=== PATIENT | male | born 1965 | race Hispanic/Latino ===

== ENCOUNTER 2017-11-18 11:24 | Inpatient (IN) | payer OTHER ==
[~2017-11-18] VITALS: Ht 177.8 cm; Wt 112.0 kg
[2017-11-18 12:00] LABS: BASOPHILS % (AUTO) 0.5 % (0.0-5.0); EOSINOPHILS % (AUTO) 0.4 % (0.0-8.0); HEMATOCRIT 43.8 % (42-54); LYMPHOCYTES % (AUTO) 13.7 % (21.0-51.0); MEAN CORPUSCULAR HEMOGLOBIN 31.4 pg (27.0-33.0); MEAN CORPUSCULAR HGB CONC 35.3 g/dL (32.0-36.0); MONOCYTES % (AUTO) 16.6 % (3.0-13.0); NEUTROPHILS % (AUTO) 68.8 % (40.0-77.0); NUCLEATED RED BLOOD CELLS 0.1 % (0.0-0.19); PLATELET COUNT (AUTO) 145 K/uL (130-400); RED BLOOD CELL COUNT(AUTO) 4.92 MIL/uL (4.50-6.20); RED CELL DISTRIBUTION WIDTH 12.6 % (11.0-15.5); WHITE BLOOD COUNT (AUTO) 2.8 K/uL (4.8-10.8)
[2017-11-18 12:04] LABS: POTASSIUM 3.2 mmol/L (3.5-5.1)
[2017-11-18 12:09] LABS: BILIRUBIN,TOTAL 0.6 mg/dL (0.2-1.0); TOTAL PROTEIN, SERUM 6.8 g/dL (6.0-8.3)
[2017-11-18] MEDS ORDERED: IPRATROPIUM/ALBUTEROL SULFATE 3 ML SOLUTION IH ONE (12:57)
[2017-11-18] MEDS ORDERED: CEFTRIAXONE SODIUM 1 GM ONE (13:06)
[2017-11-18] MEDS ORDERED: AZITHROMYCIN 250 MG TABLET PO ONE (13:07)
[2017-11-18] MEDS ORDERED: SODIUM CHLORIDE 0.9% 100 ML IV ONE (13:07)
[2017-11-18 13:09] LABS: BAND NEUTROPHILS % (MANUAL) 10 % (0-2); BASOPHILS % (MANUAL) 1 % (0-2); LYMPHOCYTES % (MANUAL) 7 % (22-44); MAN.DIFF COMMENT-IMPRESSION MANUAL DIFFERENTIAL; MONOCYTES % (MANUAL) 11 % (2-9); PLATELET MORPHOLOGY COMMENT ADEQUATE; REACTIVE LYMPHOCYTES 2 % (0-0); SEGMENTED NEUTROPHILS % 69 % (40-70)
[2017-11-18] MEDS ORDERED: SODIUM CHLORIDE 0.9% 1000ML 1,000 ML IV ONE (15:46)
[2017-11-18] MEDS ORDERED: IBUPROFEN 200 MG TAB ONE (15:47)
[2017-11-18] MEDS ORDERED: IBUPROFEN 400 MG TABLET ONE (15:47)
[2017-11-18] MEDS: SODIUM CHLORIDE 0.9% 1000ML 1,000 ML IV SCH (16:20)
[2017-11-18] MEDS ORDERED: ONDANSETRON HCL 4 MG/2 ML VIAL IV PRN (16:30)
[2017-11-18] MEDS ORDERED: LIDOCAINE HCL-MPF 1% 2ML VIAL IVP PRN (16:30)
[2017-11-18] MEDS ORDERED: POTASSIUM CHLORIDE 20MEQ/100ML 100 ML IV PRN (16:30)
[2017-11-18] MEDS ORDERED: POTASSIUM CHLORIDE 20 MEQ ERTAB PO PRN (16:30)
[2017-11-18] MEDS ORDERED: HYDRALAZINE HCL 20 MG/ML VIAL IV PRN ×2 (16:30→18:45)
[2017-11-18] MEDS ORDERED: POTASSIUM CHLORIDE 10% ELIXIR 20 MEQ/15 ML UDCUP PO PRN (16:30)
[2017-11-18] MEDS ORDERED: SODIUM CHLORIDE 0.9% 1000ML 1,000 ML IV SCH (16:35)
[2017-11-18 18:03] VITALS: BP 107/53
[2017-11-18] MEDS ORDERED: LIDOCAINE HCL MPF 1% 5ML VIAL IVP PRN (18:45)
[2017-11-18] MEDS: METHYLPREDNISOLONE SOD SUCC 125MG/2ML VIAL IV SCH (18:48)
[2017-11-18] MEDS: IPRATROPIUM/ALBUTEROL SULFATE 3 ML SOLUTION IH SCH ×2 (18:52→23:06)
[2017-11-18 20:33] VITALS: BP 119/74
[2017-11-18 20:45] LABS: CREATINE KINASE MB 1.7 ng/mL (0.5-3.6); MYOGLOBIN 284 ng/mL (10-92); TROPONIN I < 0.04 ng/mL (0.00-0.06)
[2017-11-18 20:55] LABS: CREATINE KINASE, TOTAL 2228 U/L (21-232)
[2017-11-18] MEDS: FAMOTIDINE/PF 20 MG/2 ML VIAL IV SCH (21:51)
[2017-11-18] MEDS: BENZONATATE 100 MG CAPSULE PO SCH (21:51)
[2017-11-18] MEDS: ZOSYN 3.375GM+NS 50ML 50 ML IV SCH (21:51)
[2017-11-19 00:20] VITALS: BP 117/75
[2017-11-19] MEDS: METHYLPREDNISOLONE SOD SUCC 125MG/2ML VIAL IV SCH ×3 (01:28→16:36)
[2017-11-19 04:40] VITALS: BP 116/78
[2017-11-19] MEDS: ZOSYN 3.375GM+NS 50ML 50 ML IV SCH ×3 (05:51→21:06)
[2017-11-19] MEDS: IPRATROPIUM/ALBUTEROL SULFATE 3 ML SOLUTION IH SCH ×3 (06:54→18:36)
[2017-11-19 07:30] VITALS: BP 120/76
[2017-11-19] MEDS: BENZONATATE 100 MG CAPSULE PO SCH ×3 (09:00→21:06)
[2017-11-19] MEDS ORDERED: SODIUM CHLORIDE 0.9% 1000ML 1,000 ML IV SCH (09:08)
[2017-11-19] MEDS: ENOXAPARIN SODIUM 40 MG/0.4 ML SYRINGE SQ SCH (09:17)
[2017-11-19] MEDS: FAMOTIDINE/PF 20 MG/2 ML VIAL IV SCH ×2 (09:17→21:06)
[2017-11-19] MEDS: SODIUM CHLORIDE 0.9% 1000ML 1,000 ML IV SCH ×2 (09:18→18:15)
[2017-11-19 09:25] LABS: BASOPHILS % (AUTO) 0.3 % (0.0-5.0); EOSINOPHILS % (AUTO) 0.2 % (0.0-8.0); HEMATOCRIT 43.9 % (42-54); LYMPHOCYTES % (AUTO) 6.2 % (21.0-51.0); MEAN CORPUSCULAR HEMOGLOBIN 30.4 pg (27.0-33.0); MEAN CORPUSCULAR HGB CONC 33.9 g/dL (32.0-36.0); MEAN CORPUSCULAR VOLUME 89.8 fL (79-99); MONOCYTES % (AUTO) 17.9 % (3.0-13.0); NEUTROPHILS % (AUTO) 75.4 % (40.0-77.0); NUCLEATED RED BLOOD CELLS 0.1 % (0.0-0.19); PLATELET COUNT (AUTO) 147 K/uL (130-400); RED BLOOD CELL COUNT(AUTO) 4.89 MIL/uL (4.50-6.20); RED CELL DISTRIBUTION WIDTH 12.8 % (11.0-15.5); WHITE BLOOD COUNT (AUTO) 2.8 K/uL (4.8-10.8)
[2017-11-19 09:58] LABS: CREATININE 1.1 mg/dL (0.5-1.5); POTASSIUM 3.9 mmol/L (3.5-5.1)
[2017-11-19 10:32] LABS: APPEARANCE,URINE Clear (CLEAR); BILIRUBIN,URINE Negative (NEGATIVE); COLOR,URINE Yellow (YELLOW); GLUCOSE, URINE (UA) >=1000 mg/dL (NEGATIVE); KETONES,URINE Negative (NEGATIVE); LEUKOCYTE ESTERASE ,URINE Negative (NEGATIVE); NITRATE,URINE Negative (NEGATIVE); OCCULT BLOOD,URINE Negative (NEGATIVE); PROTEIN,URINE Negative (NEGATIVE)
[2017-11-19 11:00] VITALS: BP 118/81
[2017-11-19 11:12] LABS: BACTERIA,URINE None Seen /HPF (None Seen); RBC,URINE None Seen /HPF (0-1); SQUAMOUS EPITHELIAL CELL,UR Rare /HPF (0-2); WBC,URINE None Seen /HPF (0-1)
[2017-11-19] MEDS ORDERED: IOHEXOL 350 MG/ML 100ML INFUS..BTL IV ONE (12:56)
[2017-11-19 16:00] VITALS: BP 125/89
[2017-11-19 20:24] VITALS: BP 124/77
[2017-11-19] MEDS: ACETAMINOPHEN 325 MG TAB PO PRN (21:12)
[2017-11-19] MEDS: MORPHINE SULFATE 2 MG/ML 1ML SYG IV PRN (23:14)
[2017-11-20] MEDS: IPRATROPIUM/ALBUTEROL SULFATE 3 ML SOLUTION IH SCH ×4 (00:24→18:13)
[2017-11-20 00:28] VITALS: BP 100/52
[2017-11-20] MEDS: METHYLPREDNISOLONE SOD SUCC 125MG/2ML VIAL IV SCH ×3 (00:32→16:30)
[2017-11-20] MEDS: SODIUM CHLORIDE 0.9% 1000ML 1,000 ML IV SCH ×4 (01:35→20:55)
[2017-11-20] MEDS: ACETAMINOPHEN 325 MG TAB PO PRN ×2 (01:36→11:42)
[2017-11-20 04:32] VITALS: BP 129/72
[2017-11-20 04:46] LABS: HEMATOCRIT 40.7 % (42-54); MEAN CORPUSCULAR HEMOGLOBIN 31.2 pg (27.0-33.0); MEAN CORPUSCULAR HGB CONC 34.2 g/dL (32.0-36.0); MEAN CORPUSCULAR VOLUME 91.2 fL (79-99); PLATELET COUNT (AUTO) 169 K/uL (130-400); RED BLOOD CELL COUNT(AUTO) 4.46 MIL/uL (4.50-6.20); RED CELL DISTRIBUTION WIDTH 12.9 % (11.0-15.5); WHITE BLOOD COUNT (AUTO) 11.1 K/uL (4.8-10.8)
[2017-11-20] MEDS: ZOSYN 3.375GM+NS 50ML 50 ML IV SCH ×3 (05:08→20:55)
[2017-11-20 07:50] VITALS: BP 114/68
[2017-11-20] MEDS: ENOXAPARIN SODIUM 40 MG/0.4 ML SYRINGE SQ SCH (09:34)
[2017-11-20] MEDS: BENZONATATE 100 MG CAPSULE PO SCH ×3 (09:34→20:55)
[2017-11-20] MEDS: FAMOTIDINE/PF 20 MG/2 ML VIAL IV SCH ×2 (09:38→20:55)
[2017-11-20 11:16] VITALS: BP 111/57
[2017-11-20] MEDS: LEVOFLOXACIN 750 MG/D5W 150 ML 150 ML IV SCH (11:27)
[2017-11-20] MEDS: LACTATED RINGERS 1000ML IV SCH (11:43)
[2017-11-20] MEDS: MORPHINE SULFATE 2 MG/ML 1ML SYG IV PRN (14:20)
[2017-11-20 16:33] VITALS: BP 130/68
[2017-11-20] MEDS ORDERED: SODIUM CHLORIDE 0.9% 500 ML IV ONE (19:30)
[2017-11-20] MEDS ORDERED: LORAZEPAM 2 MG/ML 1 ML VIAL ONE (19:42)
[2017-11-20 21:23] LABS: AMPHET/METH SCREEN,URINE NEGATIVE (NEGATIVE); BARBITURATE SCREEN, URINE NEGATIVE (NEGATIVE); BENZODIAZEPINES SCREEN,URINE NEGATIVE (NEGATIVE); CANNABINOID SCREEN,URINE NEGATIVE (NEGATIVE); COCAINE SCREEN,URINE NEGATIVE (NEGATIVE); OPIATE SCREEN,URINE POSITIVE (NEGATIVE); PHENCYCLIDINE SCREEN,URINE NEGATIVE (NEGATIVE)
[2017-11-20] MEDS ORDERED: LORAZEPAM 2 MG/ML 1 ML VIAL IVP STA (21:53)
[2017-11-20 23:00] VITALS: BP 143/87
[2017-11-21] MEDS: METHYLPREDNISOLONE SOD SUCC 125MG/2ML VIAL IV SCH ×3 (00:25→17:26)
[2017-11-21] MEDS: IPRATROPIUM/ALBUTEROL SULFATE 3 ML SOLUTION IH SCH ×4 (00:35→18:00)
[2017-11-21] MEDS: LORAZEPAM 2 MG/ML 1 ML VIAL IVP PRN ×3 (01:31→15:07)
[2017-11-21 03:00] VITALS: BP 141/73
[2017-11-21] MEDS: SODIUM CHLORIDE 0.9% 1000ML 1,000 ML IV SCH ×2 (04:07→17:27)
[2017-11-21] MEDS: ZOSYN 3.375GM+NS 50ML 50 ML IV SCH ×3 (04:58→20:29)
[2017-11-21] MEDS: MORPHINE SULFATE 2 MG/ML 1ML SYG IV PRN (05:48)
[2017-11-21 07:49] VITALS: BP 118/74
[2017-11-21] MEDS: M.V.I. IV [ADULT] 10 ML, FOLIC ACID 1 MG, THIAMINE HCL 100 MG in SODIUM CHLORIDE 0.9% 1... IV SCH (08:31)
[2017-11-21] MEDS: BENZONATATE 100 MG CAPSULE PO SCH ×3 (08:31→20:30)
[2017-11-21] MEDS: FAMOTIDINE/PF 20 MG/2 ML VIAL IV SCH ×2 (08:31→20:29)
[2017-11-21] MEDS: LEVOFLOXACIN 750 MG/D5W 150 ML 150 ML IV SCH (08:31)
[2017-11-21] MEDS: ENOXAPARIN SODIUM 40 MG/0.4 ML SYRINGE SQ SCH (08:32)
[2017-11-21] MEDS ORDERED: CHLORDIAZEPOXIDE HCL 25 MG CAP PO PRN (10:15)
[2017-11-21 12:00] VITALS: BP 129/86
[2017-11-21 15:55] VITALS: BP 130/87
[2017-11-21 20:00] VITALS: BP 147/88
[2017-11-21 23:48] VITALS: BP 162/91
[2017-11-22] MEDS: SODIUM CHLORIDE 0.9% 1000ML 1,000 ML IV SCH ×2 (00:07→07:22)
[2017-11-22] MEDS: IPRATROPIUM/ALBUTEROL SULFATE 3 ML SOLUTION IH SCH ×5 (00:49→23:30)
[2017-11-22] MEDS: METHYLPREDNISOLONE SOD SUCC 125MG/2ML VIAL IV SCH ×3 (01:13→16:21)
[2017-11-22] MEDS: LORAZEPAM 2 MG/ML 1 ML VIAL IVP PRN (01:48)
[2017-11-22 03:51] VITALS: BP 155/80
[2017-11-22] MEDS: ZOSYN 3.375GM+NS 50ML 50 ML IV SCH ×2 (04:51→12:55)
[2017-11-22 07:00] VITALS: BP 126/73
[2017-11-22] MEDS: LACTATED RINGERS 1000ML IV SCH (07:21)
[2017-11-22] MEDS: BENZONATATE 100 MG CAPSULE PO SCH ×3 (09:00→20:42)
[2017-11-22] MEDS: LEVOFLOXACIN 750 MG/D5W 150 ML 150 ML IV SCH (10:08)
[2017-11-22] MEDS: ENOXAPARIN SODIUM 40 MG/0.4 ML SYRINGE SQ SCH (10:09)
[2017-11-22] MEDS: FAMOTIDINE/PF 20 MG/2 ML VIAL IV SCH ×2 (10:09→20:42)
[2017-11-22] MEDS: M.V.I. IV [ADULT] 10 ML, FOLIC ACID 1 MG, THIAMINE HCL 100 MG in SODIUM CHLORIDE 0.9% 1... IV SCH (10:46)
[2017-11-22 11:00] VITALS: BP 124/89
[2017-11-22 14:08] LABS: INR 1.05 (0.85-1.15)
[2017-11-22] MEDS ORDERED: PHARMACY COMMUNICATION MISC SCH (14:15)
[2017-11-22 16:00] VITALS: BP 132/49
[2017-11-22] MEDS: DOXYCYCLINE 100MG+NS 250ML 250 ML IV SCH (16:21)
[2017-11-22] MEDS ORDERED: COMPOUND IV MISC 1 EACH IVSOLN MISC PRN (17:00)
[2017-11-22] MEDS: MORPHINE SULFATE 2 MG/ML 1ML SYG IV PRN (18:45)
[2017-11-22 20:00] VITALS: BP 118/84
[2017-11-22] MEDS: ACYCLOVIR SODIUM IV SCH (20:42)
[2017-11-22] MEDS: SODIUM CHLORIDE 0.9% IV SCH (20:42)
[2017-11-23] VITALS (12 sets, daily range): BP systolic 113–138; BP diastolic 65–94
[2017-11-23] MEDS: METHYLPREDNISOLONE SOD SUCC 125MG/2ML VIAL IV SCH ×3 (00:49→17:15)
[2017-11-23] MEDS: SODIUM CHLORIDE 0.9% IV SCH ×3 (01:07→17:16)
[2017-11-23] MEDS: ACYCLOVIR SODIUM IV SCH ×3 (01:07→17:16)
[2017-11-23] MEDS: DOXYCYCLINE 100MG+NS 250ML 250 ML IV SCH ×2 (03:00→14:37)
[2017-11-23] MEDS: MORPHINE SULFATE 2 MG/ML 1ML SYG IV PRN ×3 (03:18→22:10)
[2017-11-23] MEDS: SODIUM CHLORIDE 0.9% 1000ML 1,000 ML IV SCH (05:23)
[2017-11-23] MEDS: IPRATROPIUM/ALBUTEROL SULFATE 3 ML SOLUTION IH SCH ×4 (06:30→23:26)
[2017-11-23] MEDS: ENOXAPARIN SODIUM 40 MG/0.4 ML SYRINGE SQ SCH (09:00)
[2017-11-23] MEDS: BENZONATATE 100 MG CAPSULE PO SCH ×3 (09:55→22:08)
[2017-11-23] MEDS: M.V.I. IV [ADULT] 10 ML, FOLIC ACID 1 MG, THIAMINE HCL 100 MG in SODIUM CHLORIDE 0.9% 1... IV SCH (09:56)
[2017-11-23] MEDS: FAMOTIDINE/PF 20 MG/2 ML VIAL IV SCH ×2 (10:08→20:07)
[2017-11-23 10:30] LABS: INR 0.99 (0.85-1.15); PROTHROMBIN TIME 10.4 SEC (9.6-11.6)
[2017-11-23 15:02] LABS: GLUCOSE, CSF 126 mg/dL (40-70); TOTAL PROTEIN, CSF 89 mg/dL (15-45)
[2017-11-23 15:33] LABS: APPEARANCE,CSF CLEAR (CLEAR); CSF TOTAL VOLUME 12.5 mL; CSF TUBE NUMBER TUBE NO.3
[2017-11-23 15:34] LABS: COLOR,CSF COLORLESS (COLORLESS)
[2017-11-23 15:35] LABS: RED BLOOD CELL1,CSF 4 CMM (0-0); WHITE BLOOD CELL1,CSF 13 CMM (0-5)
[2017-11-24] VITALS (7 sets, daily range): BP systolic 117–152; BP diastolic 65–92
[2017-11-24] MEDS: ACYCLOVIR SODIUM IV SCH ×2 (00:30→09:47)
[2017-11-24] MEDS: SODIUM CHLORIDE 0.9% IV SCH ×2 (00:30→09:47)
[2017-11-24] MEDS: METHYLPREDNISOLONE SOD SUCC 125MG/2ML VIAL IV SCH ×3 (00:30→17:35)
[2017-11-24] MEDS: DOXYCYCLINE 100MG+NS 250ML 250 ML IV SCH ×2 (02:50→14:49)
[2017-11-24] MEDS: SODIUM CHLORIDE 0.9% 1000ML 1,000 ML IV SCH ×4 (04:04→17:35)
[2017-11-24] MEDS: IPRATROPIUM/ALBUTEROL SULFATE 3 ML SOLUTION IH SCH ×3 (06:08→18:25)
[2017-11-24] MEDS: BENZONATATE 100 MG CAPSULE PO SCH ×3 (09:00→21:12)
[2017-11-24] MEDS: FAMOTIDINE/PF 20 MG/2 ML VIAL IV SCH ×2 (09:13→21:12)
[2017-11-24] MEDS: ENOXAPARIN SODIUM 40 MG/0.4 ML SYRINGE SQ SCH (09:14)
[2017-11-24] MEDS: M.V.I. IV [ADULT] 10 ML, FOLIC ACID 1 MG, THIAMINE HCL 100 MG in SODIUM CHLORIDE 0.9% 1... IV SCH (10:12)
[2017-11-24 11:28] LABS: BASOPHILS % (AUTO) 0.8 % (0.0-5.0); LYMPHOCYTES % (AUTO) 10.9 % (21.0-51.0); MEAN CORPUSCULAR HGB CONC 34.4 g/dL (32.0-36.0); MEAN CORPUSCULAR VOLUME 90.1 fL (79-99); MONOCYTES % (AUTO) 11.3 % (3.0-13.0); NUCLEATED RED BLOOD CELLS 0.1 % (0.0-0.19); PLATELET COUNT (AUTO) 241 K/uL (130-400); RED BLOOD CELL COUNT(AUTO) 4.88 MIL/uL (4.50-6.20); WHITE BLOOD COUNT (AUTO) 11.3 K/uL (4.8-10.8)
[2017-11-24 11:42] LABS: ALBUMIN 2.4 g/dL (3.5-5.0); BILIRUBIN,TOTAL 0.8 mg/dL (0.2-1.0); CREATININE 0.7 mg/dL (0.5-1.5)
[2017-11-24] MEDS: ACETAMINOPHEN 325 MG TAB PO PRN ×2 (14:49→21:12)
[2017-11-24] MEDS: MORPHINE SULFATE 2 MG/ML 1ML SYG IV PRN (21:13)
[2017-11-25] MEDS: METHYLPREDNISOLONE SOD SUCC 125MG/2ML VIAL IV SCH ×3 (00:06→18:18)
[2017-11-25] MEDS: SODIUM CHLORIDE 0.9% 1000ML 1,000 ML IV SCH ×2 (00:06→09:14)
[2017-11-25] MEDS: IPRATROPIUM/ALBUTEROL SULFATE 3 ML SOLUTION IH SCH ×4 (01:04→18:52)
[2017-11-25] MEDS: DOXYCYCLINE 100MG+NS 250ML 250 ML IV SCH ×2 (03:08→14:08)
[2017-11-25 03:30] VITALS: BP 128/81
[2017-11-25 07:54] VITALS: BP 125/77
[2017-11-25] MEDS: FAMOTIDINE/PF 20 MG/2 ML VIAL IV SCH ×2 (09:09→20:42)
[2017-11-25] MEDS: BENZONATATE 100 MG CAPSULE PO SCH ×3 (09:10→20:42)
[2017-11-25] MEDS: ENOXAPARIN SODIUM 40 MG/0.4 ML SYRINGE SQ SCH (09:12)
[2017-11-25] MEDS: M.V.I. IV [ADULT] 10 ML, FOLIC ACID 1 MG, THIAMINE HCL 100 MG in SODIUM CHLORIDE 0.9% 1... IV SCH (09:35)
[2017-11-25 11:06] VITALS: BP 130/84
[2017-11-25 14:29] LABS: VARICELLA IGG ANTIBODY CSF <10 IV (.)
[2017-11-25] MEDS: ACETAMINOPHEN 325 MG TAB PO PRN ×2 (15:18→20:42)
[2017-11-25 15:39] VITALS: BP 125/83
[2017-11-25 19:59] VITALS: BP 123/88
[2017-11-25] MEDS: LACTULOSE 20 GM/30 ML UDCUP PO PRN (20:42)
[2017-11-25 23:00] VITALS: BP 135/78
[2017-11-26] MEDS: METHYLPREDNISOLONE SOD SUCC 125MG/2ML VIAL IV SCH ×4 (01:23→23:51)
[2017-11-26] MEDS: IPRATROPIUM/ALBUTEROL SULFATE 3 ML SOLUTION IH SCH ×5 (01:30→23:09)
[2017-11-26 03:00] VITALS: BP 126/85
[2017-11-26] MEDS: DOXYCYCLINE 100MG+NS 250ML 250 ML IV SCH ×2 (03:17→14:09)
[2017-11-26] MEDS: ACETAMINOPHEN 325 MG TAB PO PRN ×3 (03:46→23:51)
[2017-11-26] MEDS: LACTULOSE 20 GM/30 ML UDCUP PO PRN (03:46)
[2017-11-26 05:07] LABS: BASOPHILS % (AUTO) 0.3 % (0.0-5.0); HEMATOCRIT 43.4 % (42-54); LYMPHOCYTES % (AUTO) 8.5 % (21.0-51.0); MEAN CORPUSCULAR HEMOGLOBIN 30.9 pg (27.0-33.0); MEAN CORPUSCULAR HGB CONC 34.2 g/dL (32.0-36.0); MEAN CORPUSCULAR VOLUME 90.5 fL (79-99); NEUTROPHILS % (AUTO) 81.2 % (40.0-77.0); NUCLEATED RED BLOOD CELLS 0.1 % (0.0-0.19); PLATELET COUNT (AUTO) 245 K/uL (130-400); WHITE BLOOD COUNT (AUTO) 9.4 K/uL (4.8-10.8)
[2017-11-26 05:25] LABS: ALBUMIN 2.6 g/dL (3.5-5.0); BILIRUBIN,TOTAL 0.9 mg/dL (0.2-1.0); CREATININE 0.9 mg/dL (0.5-1.5); POTASSIUM 4.2 mmol/L (3.5-5.1); TOTAL PROTEIN, SERUM 6.4 g/dL (6.0-8.3)
[2017-11-26 08:00] VITALS: BP 120/80
[2017-11-26] MEDS: M.V.I. IV [ADULT] 10 ML, FOLIC ACID 1 MG, THIAMINE HCL 100 MG in SODIUM CHLORIDE 0.9% 1... IV SCH (10:28)
[2017-11-26] MEDS: FAMOTIDINE/PF 20 MG/2 ML VIAL IV SCH ×2 (10:28→21:01)
[2017-11-26] MEDS: BENZONATATE 100 MG CAPSULE PO SCH ×3 (10:29→21:01)
[2017-11-26] MEDS: ENOXAPARIN SODIUM 40 MG/0.4 ML SYRINGE SQ SCH (10:30)
[2017-11-26 11:00] VITALS: BP_SYST 154; BP_SYST 157; BP_DIAS 55; BP_DIAS 74
[2017-11-26 13:18] LABS: ROCKY MT SPOTTED FEVER IGG <1:64 (Neg:<1:64); TYPHUS FEVER AB IGG <1:64 (Neg:<1:64)
[2017-11-26] MEDS: LORAZEPAM 2 MG/ML 1 ML VIAL IVP PRN (15:43)
[2017-11-26 16:00] VITALS: BP 138/66
[2017-11-26 20:00] VITALS: BP 120/78
[2017-11-26] MEDS: DOXYCYCLINE HYCLATE 100 MG TABLET PO SCH (21:01)
[2017-11-26 23:09] LABS: HERPES SIMPLEX VIRUS-1 BY PCR Negative (Negative); HERPES SIMPLEX VIRUS-2 BY PCR Negative (Negative)
[2017-11-27] VITALS: BP 130/74
[2017-11-27 04:00] VITALS: BP 131/83
[2017-11-27 05:32] LABS: ALBUMIN 2.4 g/dL (3.5-5.0); BILIRUBIN,TOTAL 0.7 mg/dL (0.2-1.0); CREATININE 0.8 mg/dL (0.5-1.5); TOTAL PROTEIN, SERUM 5.7 g/dL (6.0-8.3)
[2017-11-27 05:43] LABS: POTASSIUM 4.6 mmol/L (3.5-5.1)
[2017-11-27] MEDS: IPRATROPIUM/ALBUTEROL SULFATE 3 ML SOLUTION IH SCH ×3 (06:05→18:32)
[2017-11-27 08:00] VITALS: BP 120/86
[2017-11-27] MEDS: M.V.I. IV [ADULT] 10 ML, FOLIC ACID 1 MG, THIAMINE HCL 100 MG in SODIUM CHLORIDE 0.9% 1... IV SCH (09:00)
[2017-11-27] MEDS: FAMOTIDINE/PF 20 MG/2 ML VIAL IV SCH ×2 (09:52→20:44)
[2017-11-27] MEDS: DOXYCYCLINE HYCLATE 100 MG TABLET PO SCH ×2 (09:52→20:45)
[2017-11-27] MEDS: BENZONATATE 100 MG CAPSULE PO SCH ×3 (09:52→20:45)
[2017-11-27] MEDS: ENOXAPARIN SODIUM 40 MG/0.4 ML SYRINGE SQ SCH (09:54)
[2017-11-27 12:00] VITALS: BP 118/71
[2017-11-27 16:00] VITALS: BP 120/70
[2017-11-27 20:00] VITALS: BP 107/67
[2017-11-27] MEDS: ACETAMINOPHEN 325 MG TAB PO PRN (21:00)
[2017-11-28] MEDS: IPRATROPIUM/ALBUTEROL SULFATE 3 ML SOLUTION IH SCH ×5 (00:06→23:34)
[2017-11-28 00:39] VITALS: BP 101/65
[2017-11-28] MEDS: ACETAMINOPHEN 325 MG TAB PO PRN (03:12)
[2017-11-28 04:00] VITALS: BP 107/75
[2017-11-28] MEDS: FOLIC ACID 1 MG TABLET PO SCH (10:18)
[2017-11-28] MEDS: DOXYCYCLINE HYCLATE 100 MG TABLET PO SCH ×2 (10:18→20:11)
[2017-11-28] MEDS: BENZONATATE 100 MG CAPSULE PO SCH ×3 (10:18→20:11)
[2017-11-28] MEDS: HYDROCODONE/ACETAMINOPHEN 5/325 MG TAB PO PRN ×3 (10:19→22:55)
[2017-11-28] MEDS: THIAMINE HCL 100 MG TABLET PO SCH (10:19)
[2017-11-28] MEDS: FAMOTIDINE/PF 20 MG/2 ML VIAL IV SCH ×2 (10:19→20:11)
[2017-11-28] MEDS: VITAMIN B COMPLEX 1 CAPSULE PO SCH (10:19)
[2017-11-28] MEDS: ENOXAPARIN SODIUM 40 MG/0.4 ML SYRINGE SQ SCH (10:20)
[2017-11-28] MEDS: BENZOCAINE/MENTH/CETYLPYRD CL 1 EACH LOZENGE MM PRN (16:52)
[2017-11-28 19:30] VITALS: BP 111/74
[2017-11-29] VITALS (7 sets, daily range): BP systolic 94–115; BP diastolic 62–83
[2017-11-29] MEDS: HYDROCODONE/ACETAMINOPHEN 5/325 MG TAB PO PRN ×4 (04:54→23:47)
[2017-11-29] MEDS: IPRATROPIUM/ALBUTEROL SULFATE 3 ML SOLUTION IH SCH ×4 (06:03→23:11)
[2017-11-29] MEDS: VITAMIN B COMPLEX 1 CAPSULE PO SCH (11:21)
[2017-11-29] MEDS: DOXYCYCLINE HYCLATE 100 MG TABLET PO SCH (11:21)
[2017-11-29] MEDS: FOLIC ACID 1 MG TABLET PO SCH (11:21)
[2017-11-29] MEDS: THIAMINE HCL 100 MG TABLET PO SCH (11:22)
[2017-11-29] MEDS: FAMOTIDINE/PF 20 MG/2 ML VIAL IV SCH ×2 (11:24→21:50)
[2017-11-29] MEDS: ENOXAPARIN SODIUM 40 MG/0.4 ML SYRINGE SQ SCH (11:28)
[2017-11-29] MEDS: BENZONATATE 100 MG CAPSULE PO SCH ×3 (11:30→21:50)
[2017-11-29] MEDS ORDERED: GUAIFENESIN SUGAR-FREE 100 MG/5 ML UDCUP ONE (17:13)
[2017-11-29] MEDS ORDERED: GUAIFENESIN SUGAR-FREE 100 MG/5 ML UDCUP PO PRN ×2 (17:15)
[2017-11-29] MEDS: LACTULOSE 20 GM/30 ML UDCUP PO PRN (21:55)
[2017-11-30] MEDS ORDERED: LORAZEPAM 2 MG/ML 1 ML VIAL IM ONE
[2017-11-30] MEDS ORDERED: LORAZEPAM 2 MG/ML 1 ML VIAL IM PRN
[2017-11-30 03:00] VITALS: BP 102/74
[2017-11-30 05:07] LABS: BASOPHILS % (AUTO) 0.2 % (0.0-5.0); EOSINOPHILS % (AUTO) 0.8 % (0.0-8.0); HEMATOCRIT 48.5 % (42-54); LYMPHOCYTES % (AUTO) 10.2 % (21.0-51.0); MEAN CORPUSCULAR HEMOGLOBIN 30.9 pg (27.0-33.0); MEAN CORPUSCULAR HGB CONC 34.1 g/dL (32.0-36.0); MEAN CORPUSCULAR VOLUME 90.6 fL (79-99); MONOCYTES % (AUTO) 9.9 % (3.0-13.0); NEUTROPHILS % (AUTO) 78.9 % (40.0-77.0); PLATELET COUNT (AUTO) 283 K/uL (130-400); RED BLOOD CELL COUNT(AUTO) 5.35 MIL/uL (4.50-6.20); RED CELL DISTRIBUTION WIDTH 13.1 % (11.0-15.5); WHITE BLOOD COUNT (AUTO) 13.4 K/uL (4.8-10.8)
[2017-11-30 05:20] LABS: CREATININE 0.7 mg/dL (0.5-1.5); POTASSIUM 4.7 mmol/L (3.5-5.1)
[2017-11-30] MEDS: HYDROCODONE/ACETAMINOPHEN 5/325 MG TAB PO PRN ×3 (06:15→20:42)
[2017-11-30] MEDS: IPRATROPIUM/ALBUTEROL SULFATE 3 ML SOLUTION IH SCH ×4 (06:25→23:24)
[2017-11-30 07:43] VITALS: BP 100/45
[2017-11-30] MEDS: LACTULOSE 20 GM/30 ML UDCUP PO PRN ×2 (10:34→20:41)
[2017-11-30] MEDS: THIAMINE HCL 100 MG TABLET PO SCH (10:34)
[2017-11-30] MEDS: FAMOTIDINE/PF 20 MG/2 ML VIAL IV SCH ×2 (10:35→20:41)
[2017-11-30] MEDS: FOLIC ACID 1 MG TABLET PO SCH (10:35)
[2017-11-30] MEDS: BENZONATATE 100 MG CAPSULE PO SCH ×3 (10:35→20:41)
[2017-11-30] MEDS: VITAMIN B COMPLEX 1 CAPSULE PO SCH (10:35)
[2017-11-30] MEDS: ENOXAPARIN SODIUM 40 MG/0.4 ML SYRINGE SQ SCH (10:38)
[2017-11-30 11:27] VITALS: BP 105/79
[2017-11-30 15:46] VITALS: BP 138/79
[2017-11-30] MEDS ORDERED: TROLAMINE SALICYLATE CREAM 85 GM TUBE TP PRN (17:30)
[2017-11-30 20:04] VITALS: BP 108/86
[2017-11-30 23:57] VITALS: BP 116/76
[2017-12-01 00:12] VITALS: BP 111/85
[2017-12-01 03:35] VITALS: BP 128/91
[2017-12-01] MEDS ORDERED: HYDROMORPHONE HCL 2 MG/ML VIAL IVP SCH (06:15)
[2017-12-01] MEDS ORDERED: HYDROMORPHONE 1 MG/1 ML AMP ONE (06:19)
[2017-12-01] MEDS: IPRATROPIUM/ALBUTEROL SULFATE 3 ML SOLUTION IH SCH ×3 (06:42→18:14)
[2017-12-01 08:00] VITALS: BP 121/60
[2017-12-01] MEDS: FAMOTIDINE/PF 20 MG/2 ML VIAL IV SCH ×2 (09:29→21:36)
[2017-12-01] MEDS: VITAMIN B COMPLEX 1 CAPSULE PO SCH (09:29)
[2017-12-01] MEDS: FOLIC ACID 1 MG TABLET PO SCH (09:29)
[2017-12-01] MEDS: BENZONATATE 100 MG CAPSULE PO SCH ×3 (09:29→21:36)
[2017-12-01] MEDS: THIAMINE HCL 100 MG TABLET PO SCH (09:29)
[2017-12-01] MEDS: ENOXAPARIN SODIUM 40 MG/0.4 ML SYRINGE SQ SCH (09:30)
[2017-12-01 11:41] VITALS: BP 129/64
[2017-12-01] MEDS ORDERED: BISACODYL 10 MG SUPP.RECT RC ONE (15:30)
[2017-12-01 16:00] VITALS: BP 128/65
[2017-12-01 19:05] VITALS: BP 119/88
[2017-12-02] VITALS (7 sets, daily range): BP systolic 106–136; BP diastolic 74–88
[2017-12-02] MEDS: IPRATROPIUM/ALBUTEROL SULFATE 3 ML SOLUTION IH SCH ×5 (00:09→23:39)
[2017-12-02] MEDS ORDERED: DIAZEPAM 5 MG TABLET PO PRN (03:00)
[2017-12-02] MEDS ORDERED: DIAZEPAM 5 MG TABLET ONE (03:09)
[2017-12-02] MEDS: THIAMINE HCL 100 MG TABLET PO SCH (07:52)
[2017-12-02] MEDS: FOLIC ACID 1 MG TABLET PO SCH (07:52)
[2017-12-02] MEDS: VITAMIN B COMPLEX 1 CAPSULE PO SCH (07:52)
[2017-12-02] MEDS: BENZONATATE 100 MG CAPSULE PO SCH (07:53)
[2017-12-02] MEDS: FAMOTIDINE/PF 20 MG/2 ML VIAL IV SCH ×2 (07:53→21:38)
[2017-12-02] MEDS: ACETAMINOPHEN 325 MG TAB PO PRN ×2 (07:54→15:12)
[2017-12-02] MEDS: ENOXAPARIN SODIUM 40 MG/0.4 ML SYRINGE SQ SCH (07:55)
[2017-12-02 09:13] LABS: HEMATOCRIT 47.4 % (42-54); MEAN CORPUSCULAR HEMOGLOBIN 30.3 pg (27.0-33.0); MEAN CORPUSCULAR HGB CONC 33.8 g/dL (32.0-36.0); MEAN CORPUSCULAR VOLUME 89.6 fL (79-99); PLATELET COUNT (AUTO) 258 K/uL (130-400); RED BLOOD CELL COUNT(AUTO) 5.29 MIL/uL (4.50-6.20); RED CELL DISTRIBUTION WIDTH 13.3 % (11.0-15.5); WHITE BLOOD COUNT (AUTO) 25.2 K/uL (4.8-10.8)
[2017-12-02 09:22] LABS: HEMOGLOBIN A1C 6.8 % (4.0-6.0)
[2017-12-02 09:35] LABS: ALBUMIN 2.5 g/dL (3.5-5.0); BILIRUBIN,TOTAL 1.1 mg/dL (0.2-1.0); CREATININE 0.9 mg/dL (0.5-1.5); POTASSIUM 4.9 mmol/L (3.5-5.1); THYROID STIMULATING HORMONE 0.72 uIU/mL (0.36-3.74); TOTAL PROTEIN, SERUM 6.4 g/dL (6.0-8.3)
[2017-12-02 09:43] LABS: BAND NEUTROPHILS % (MANUAL) 1 % (0-2); EOSINOPHILS % (MANUAL) 1 % (1-6); LYMPHOCYTES % (MANUAL) 5 % (22-44); MAN.DIFF COMMENT-IMPRESSION MANUAL DIFFERENTIAL; MONOCYTES % (MANUAL) 6 % (2-9); PLATELET MORPHOLOGY COMMENT ADEQUATE; REACTIVE LYMPHOCYTES 1 % (0-0); SEGMENTED NEUTROPHILS % 86 % (40-70)
[2017-12-02] MEDS: BENZOCAINE/MENTH/CETYLPYRD CL 1 EACH LOZENGE MM PRN (10:05)
[2017-12-02 15:48] LABS: APPEARANCE,URINE Clear (CLEAR); BILIRUBIN,URINE Negative (NEGATIVE); COLOR,URINE Yellow (YELLOW); GLUCOSE, URINE (UA) 250 mg/dL (NEGATIVE); KETONES,URINE Negative (NEGATIVE); LEUKOCYTE ESTERASE ,URINE Small (NEGATIVE); NITRATE,URINE Negative (NEGATIVE); OCCULT BLOOD,URINE Negative (NEGATIVE); PROTEIN,URINE Negative (NEGATIVE)
[2017-12-02 15:55] LABS: BACTERIA,URINE None Seen /HPF (None Seen); RBC,URINE None Seen /HPF (0-1); SQUAMOUS EPITHELIAL CELL,UR None Seen /HPF (0-2); WBC,URINE 0-1 /HPF (0-1)
[2017-12-02] MEDS: HYDROCODONE/ACETAMINOPHEN 5/325 MG TAB PO PRN (21:38)
[2017-12-03] VITALS (7 sets, daily range): BP systolic 109–144; BP diastolic 68–87
[2017-12-03] MEDS: CYCLOBENZAPRINE HCL 10 MG TABLET PO PRN (00:11)
[2017-12-03] MEDS: HYDROCODONE/ACETAMINOPHEN 5/325 MG TAB PO PRN ×2 (03:09→20:38)
[2017-12-03 05:04] LABS: BASOPHILS % (AUTO) 0.1 % (0.0-5.0); EOSINOPHILS % (AUTO) 0.3 % (0.0-8.0); HEMATOCRIT 43.5 % (42-54); LYMPHOCYTES % (AUTO) 6.2 % (21.0-51.0); MEAN CORPUSCULAR HEMOGLOBIN 31.2 pg (27.0-33.0); MEAN CORPUSCULAR HGB CONC 34.6 g/dL (32.0-36.0); MEAN CORPUSCULAR VOLUME 90.1 fL (79-99); MONOCYTES % (AUTO) 11.2 % (3.0-13.0); NEUTROPHILS % (AUTO) 82.2 % (40.0-77.0); PLATELET COUNT (AUTO) 270 K/uL (130-400); RED BLOOD CELL COUNT(AUTO) 4.83 MIL/uL (4.50-6.20); RED CELL DISTRIBUTION WIDTH 13.1 % (11.0-15.5); WHITE BLOOD COUNT (AUTO) 19.8 K/uL (4.8-10.8)
[2017-12-03 05:17] LABS: CREATININE 0.7 mg/dL (0.5-1.5); POTASSIUM 4.1 mmol/L (3.5-5.1)
[2017-12-03] MEDS: IPRATROPIUM/ALBUTEROL SULFATE 3 ML SOLUTION IH SCH ×3 (06:42→18:15)
[2017-12-03] MEDS: VITAMIN B COMPLEX 1 CAPSULE PO SCH (09:04)
[2017-12-03] MEDS: FOLIC ACID 1 MG TABLET PO SCH (09:04)
[2017-12-03] MEDS: THIAMINE HCL 100 MG TABLET PO SCH (09:04)
[2017-12-03] MEDS: FAMOTIDINE/PF 20 MG/2 ML VIAL IV SCH ×2 (09:04→20:33)
[2017-12-03] MEDS: ENOXAPARIN SODIUM 40 MG/0.4 ML SYRINGE SQ SCH (09:05)
[2017-12-03] MEDS ORDERED: PNEUMOCOCCAL VACCINE POLYVALENT 0.5 ML/VIAL [PPV] IM SCH (09:45)
[2017-12-03] MEDS: ACETAMINOPHEN 325 MG TAB PO PRN (14:00)
[2017-12-04] MEDS: IPRATROPIUM/ALBUTEROL SULFATE 3 ML SOLUTION IH SCH ×4 (00:21→18:00)
[2017-12-04] MEDS: CYCLOBENZAPRINE HCL 10 MG TABLET PO PRN (01:16)
[2017-12-04] MEDS: HYDROCODONE/ACETAMINOPHEN 5/325 MG TAB PO PRN ×2 (02:28→21:04)
[2017-12-04 03:45] VITALS: BP 120/83
[2017-12-04 04:45] LABS: BASOPHILS % (AUTO) 0.3 % (0.0-5.0); EOSINOPHILS % (AUTO) 0.5 % (0.0-8.0); HEMATOCRIT 40.4 % (42-54); LYMPHOCYTES % (AUTO) 8.2 % (21.0-51.0); MEAN CORPUSCULAR HEMOGLOBIN 30.3 pg (27.0-33.0); MEAN CORPUSCULAR HGB CONC 33.8 g/dL (32.0-36.0); MEAN CORPUSCULAR VOLUME 89.8 fL (79-99); MONOCYTES % (AUTO) 13.4 % (3.0-13.0); NEUTROPHILS % (AUTO) 77.6 % (40.0-77.0); PLATELET COUNT (AUTO) 201 K/uL (130-400); RED CELL DISTRIBUTION WIDTH 13.4 % (11.0-15.5); WHITE BLOOD COUNT (AUTO) 14.5 K/uL (4.8-10.8)
[2017-12-04 04:55] LABS: CREATININE 0.7 mg/dL (0.5-1.5)
[2017-12-04] MEDS: ACETAMINOPHEN 325 MG TAB PO PRN ×2 (06:55→13:15)
[2017-12-04 08:00] VITALS: BP 129/80
[2017-12-04] MEDS: FOLIC ACID 1 MG TABLET PO SCH (09:23)
[2017-12-04] MEDS: VITAMIN B COMPLEX 1 CAPSULE PO SCH (09:23)
[2017-12-04] MEDS: THIAMINE HCL 100 MG TABLET PO SCH (09:23)
[2017-12-04] MEDS: FAMOTIDINE/PF 20 MG/2 ML VIAL IV SCH ×2 (09:23→21:04)
[2017-12-04] MEDS: ENOXAPARIN SODIUM 40 MG/0.4 ML SYRINGE SQ SCH (09:24)
[2017-12-04 12:00] VITALS: BP 118/79
[2017-12-04 16:00] VITALS: BP 124/78
[2017-12-04] MEDS ORDERED: BISACODYL 10 MG SUPP.RECT RC PRN (18:00)
[2017-12-04 19:04] VITALS: BP 120/79
[2017-12-04 23:04] VITALS: BP 130/77
[2017-12-05] MEDS: HYDROCODONE/ACETAMINOPHEN 5/325 MG TAB PO PRN ×2 (02:33→20:16)
[2017-12-05 03:27] VITALS: BP 130/83
[2017-12-05] MEDS: IPRATROPIUM/ALBUTEROL SULFATE 3 ML SOLUTION IH SCH ×3 (06:00→11:25)
[2017-12-05 07:36] VITALS: BP 130/80
[2017-12-05] MEDS: FAMOTIDINE 20MG TAB 20 MG TAB PO SCH ×2 (08:42→20:16)
[2017-12-05] MEDS: VITAMIN B COMPLEX 1 CAPSULE PO SCH (08:43)
[2017-12-05] MEDS: THIAMINE HCL 100 MG TABLET PO SCH (08:43)
[2017-12-05] MEDS: CYCLOBENZAPRINE HCL 10 MG TABLET PO PRN (08:43)
[2017-12-05] MEDS: FOLIC ACID 1 MG TABLET PO SCH (08:43)
[2017-12-05] MEDS: ENOXAPARIN SODIUM 40 MG/0.4 ML SYRINGE SQ SCH (08:44)
[2017-12-05] MEDS: ACETAMINOPHEN 325 MG TAB PO PRN (08:46)
[2017-12-05 11:10] VITALS: BP 126/91
[2017-12-05 16:23] VITALS: BP 113/79
[2017-12-05 19:00] VITALS: BP 120/70
[2017-12-05 23:00] VITALS: BP 129/79
[2017-12-06] MEDS: HYDROCODONE/ACETAMINOPHEN 5/325 MG TAB PO PRN (02:18)
[2017-12-06 03:23] VITALS: BP 125/88
[2017-12-06 05:54] LABS: BASOPHILS % (AUTO) 0.7 % (0.0-5.0); CREATININE 0.6 mg/dL (0.5-1.5); EOSINOPHILS % (AUTO) 1.1 % (0.0-8.0); HEMATOCRIT 38.1 % (42-54); LYMPHOCYTES % (AUTO) 12.5 % (21.0-51.0); MEAN CORPUSCULAR HEMOGLOBIN 31.3 pg (27.0-33.0); MEAN CORPUSCULAR HGB CONC 34.9 g/dL (32.0-36.0); MEAN CORPUSCULAR VOLUME 89.8 fL (79-99); MONOCYTES % (AUTO) 11.6 % (3.0-13.0); NEUTROPHILS % (AUTO) 74.1 % (40.0-77.0); NUCLEATED RED BLOOD CELLS 0.1 % (0.0-0.19); PLATELET COUNT (AUTO) 191 K/uL (130-400); POTASSIUM 3.7 mmol/L (3.5-5.1); RED BLOOD CELL COUNT(AUTO) 4.24 MIL/uL (4.50-6.20); RED CELL DISTRIBUTION WIDTH 13.2 % (11.0-15.5); WHITE BLOOD COUNT (AUTO) 10.8 K/uL (4.8-10.8)
[2017-12-06] MEDS: IPRATROPIUM/ALBUTEROL SULFATE 3 ML SOLUTION IH SCH ×2 (06:00→12:00)
[2017-12-06 08:00] VITALS: BP 144/79
[2017-12-06] MEDS: THIAMINE HCL 100 MG TABLET PO SCH (08:42)
[2017-12-06] MEDS: VITAMIN B COMPLEX 1 CAPSULE PO SCH (08:42)
[2017-12-06] MEDS: FAMOTIDINE 20MG TAB 20 MG TAB PO SCH (08:43)
[2017-12-06] MEDS: FOLIC ACID 1 MG TABLET PO SCH (08:43)
[2017-12-06] MEDS: ACETAMINOPHEN 325 MG TAB PO PRN ×2 (08:44→16:05)
[2017-12-06] MEDS: ENOXAPARIN SODIUM 40 MG/0.4 ML SYRINGE SQ SCH (08:45)
[2017-12-06 11:00] VITALS: BP 128/83
[2017-12-06 16:00] VITALS: BP 154/98
== END 2017-12-06 19:02 | disposition home or self-care (01) | DRG 871 ==
LOC: EDH 11:24 → EDHIP 11:25 → 4BH 17:10 → 3CH 11-20 19:56
PROVIDERS: ADMIT Hospitalist; ATTEND Hospitalist
PROC: 3E0234Z Introduction of Serum, Toxoid and Vaccine into Muscle, Percutaneous Approach (ICD-10-PCS; 2017-11-19)
PROC: 009U3ZX Drainage of Spinal Canal, Percutaneous Approach, Diagnostic (ICD-10-PCS; principal; 2017-11-23)
PROC: B01B1ZZ Fluoroscopy of Spinal Cord using Low Osmolar Contrast (ICD-10-PCS; 2017-11-23)
DX: A41.9 Sepsis, unspecified organism (principal); G04.90 Encephalitis and encephalomyelitis, unspecified; M62.82 Rhabdomyolysis; A79.9 Rickettsiosis, unspecified; J20.9 Acute bronchitis, unspecified; E87.6 Hypokalemia; E86.0 Dehydration; D70.9 Neutropenia, unspecified; R79.1 Abnormal coagulation profile; E66.01 Morbid (severe) obesity due to excess calories; K59.00 Constipation, unspecified; R53.81 Other malaise; R33.9 Retention of urine, unspecified; Z74.01 Bed confinement status; Z68.35 Body mass index [BMI] 35.0-35.9, adult; Z72.89 Other problems related to lifestyle; Z23 Encounter for immunization
CPT/HCPCS: 36415; 62270; 70450; 70551; 71045; 71046; 71275; 74176; 80048; 80053; 80061; 80305; 81001; 82140; 82550; 82553; 82945; 82948; 83036; 83605; 83874; 84157; 84443; 84484; 85025; 85027; 85378; 85610; 85730; 86592; 86757; 86787; 87040; 87071; 87088; 87205; 87529; 87633; 87804; 89051; 93005; 93970; 94640; 94664; 97039; A4344; A6250; G0008; J0133; J0696; J1170; J1650; J1956; J2060; J2405; J2543; J2930; J3411; J3490; J7030; J7120; Q2038; Q9967